=== PATIENT | male | born 1975 | race Caucasian/White ===

== ENCOUNTER 2021-01-08 13:28 | Outpatient (CLI) | payer OTHER, SELFPAY ==
--- NOTE | 2021-01-13 12:36 | WPDHOLTEREM ---
Holter/Event Monitor Holter/Event Monitor Date of procedure: 01/08/21 Procedure Type: 24 hour holter monitor Indications: Bradycardia Conclusion: 1. 24 hour holter monitor on 01/08/21. 2. Underlying rhythm is sinus rhythm. HR range 41-125 bpm; average HR 61 bpm. 3. There are 8 premature supraventricular complexes. No supraventricular tachycardia. 4. There are 7 premature ventricular complexes. No ventricular tachycardia. 5. No sinoatrial or atrioventricular blocks. No significant pauses greater than 2 seconds. 6. No symptoms available for correlation.
== END 2021-01-08 13:29 | disposition home or self-care (01) ==
PROVIDERS: PCP Family Medicine; Visit Provider Family Medicine
DX: R00.1 Bradycardia, unspecified (principal)
CPT/HCPCS: 93225; 93226

== ENCOUNTER 2021-01-23 08:40 | Outpatient (CLI) | payer OTHER, SELFPAY ==
[2021-01-23 09:22] LABS: Anion Gap 1 mmol/L (8-16); Blood Urea Nitrogen 14 mg/dL (9-20); Calcium 8.5 mg/dL (8.4-10.2); Carbon Dioxide 32 mmol/L (22-30); Chloride 108 mmol/L (98-107); Estimated Glomerular Filt Rate > 60; Glucose 91 mg/dL (75-110); Potassium 4.5 mmol/L (3.4-5.0); Sodium 141 mmol/L (137-145)
== END 2021-01-23 08:41 | disposition home or self-care (01) ==
PROVIDERS: PCP Family Medicine; Visit Provider Nurse Practitioner Family
DX: E83.51 Hypocalcemia (principal)
CPT/HCPCS: 36415; 80048

== ENCOUNTER 2021-02-26 14:34 | Outpatient (CLI) | payer OTHER, SELFPAY ==
--- NOTE | 2021-02-26 14:35 | ECHO_ITS ---
Patient Info Name: Krish Shelley Age: 46 years : 1975 Gender: Male Ht: 63 in Wt: 195 lbs BSA: 2.02 m2 HR: 57 bpm BP: 121 / 75 mmHg Technical Quality: Good Exam Date: 02/26/2021 3:07 PM Exam Location: [facility] Patient Status: Outpatient Admit Date: 02/26/2021 Staff Ordering Physician: Moris Baltazar DO Healthcare Account Manager: Caprice Meyer RDCS Attending Provider: Moris Baltazar DO Referring Physician: Giovanny LAI; Exam Type: CA echo doppler color flow Study Info Indications - DIZZINESS GIDDINESS Complete two-dimensional, color flow and Doppler transthoracic echocardiogram is performed. Summary 1. Complete two-dimensional, color flow and Doppler transthoracic echocardiogram is performed. 2. Left ventricular systolic function is normal, estimated at 60-65%. 3. The left ventricular diastolic function is normal. 4. Left ventricular chamber dimension is normal. 5. E/e' 8 is minimally elevated. 6. No pulmonary hypertension, estimated pulmonary arterial systolic pressure is 24 mmHg. Left Ventricle E/e' 8 is minimally elevated. Left ventricular chamber dimension is normal. Left ventricular systolic function is normal, estimated at 60-65%. The left ventricular diastolic function is normal. Right Ventricle Right ventricular chamber dimension is normal. Right ventricular systolic function is normal. Left Atria Left atrial chamber dimension is normal. Right Atria Right atrial chamber dimension is normal. Aortic Valve The aortic valve is trileaflet. There is no aortic valve stenosis. There is no aortic valve regurgitation. Pulmonic Valve There is no pulmonic regurgitation. Mitral Valve There is no mitral valve stenosis. There is no mitral valve regurgitation. Tricuspid Valve There is no tricuspid valve regurgitation. No pulmonary hypertension, estimated pulmonary arterial systolic pressure is 24 mmHg. Pericardium/Pleural There is no pericardial effusion. Inferior Vena Cava Normal inferior vena cava with >50% collapse upon inspiration consistent with normal right atrial pressure, 5 mmHg. Aorta The aortic root size at the sinus of Valsalva is normal. Left Ventricular Outflow Tract Name Value Normal LVOT 2D LVOT Diameter 2.0 cm LVOT Doppler LVOT Peak Gradient 4 mmHg LVOT Mean Gradient 3 mmHg LVOT VTI 27 cm LVOT VTI/AV VTI Ratio 0.8 LVOT Stroke Volume 85 ml LVOT CO 15.1 l/min LVOT CI 7.5 l/min/m2 Pulmonic Valve Name Value Normal PV Doppler PV Peak Gradient 6 mmHg Mitral Valve Name
== END 2021-02-26 14:35 | disposition home or self-care (01) ==
PROVIDERS: PCP Family Medicine; Visit Provider Internal Medicine Cardiovascular Disease
DX: R42 Dizziness and giddiness (principal); R00.1 Bradycardia, unspecified; R06.02 Shortness of breath
CPT/HCPCS: 93306

== ENCOUNTER → 2021-07-03 01:48 | Outpatient (CLI) | payer OTHER, SELFPAY ==
[2021-07-03 20:12] LABS: SARS-CoV-2 RNA PCR Negative
== END ==
PROVIDERS: PCP Family Medicine; Visit Provider Physician Assistant Medical
DX: R68.89 Other general symptoms and signs (principal); Z20.822 Contact with and (suspected) exposure to COVID-19
CPT/HCPCS: C9803; U0003; U0005

== ENCOUNTER → 2022-01-25 14:22 | Outpatient (CLI) | payer OTHER, SELFPAY ==
--- NOTE | ~2022-01-25 | MR_ITS ---
EXAMINATION: MR brain/brain stem wo con DATE: 01/25/2022 15:29 INDICATION: Disorientation, unspecified. Cognitive decline. TECHNIQUE: Magnetic resonance imaging (MRI) of the brain and brainstem was performed without intraven ous contrast. Sequences included sagittal and axial T1-weighted FSE, axial diffusion-weighted FS EPI, axial T2*-weighted GRE, axial T2-weighted FLAIR Propeller, and axial T2-weighted Propeller. Apparent diffusion coefficient (ADC) maps were created. COMPARISON: None. FINDINGS: There is no intracranial hemorrhage, acute infarction, or abnormal intracranial mass lesion . The ventricles are normal in size. There is mucosal thickening in the left maxillary and left ethmo id sinuses. The orbits are normal. The mastoid air cells are normal. IMPRESSION: 1. Normal brain. Reviewed, dictated and finalized at location A. IMPRESSION: 1. Normal brain.
== END ==
PROVIDERS: PCP Family Medicine; Visit Provider Family Medicine
DX: R41.0 Disorientation, unspecified (principal)
CPT/HCPCS: 70551

== ENCOUNTER 2023-12-15 09:26 | Outpatient (CLI) | payer OTHER, SELFPAY ==
--- NOTE | 2024-01-09 12:15 | WPDHOMESLEEP ---
Sleep Study - Home Unattended Date of Study: 12/15/23 Ordering Provider: Dinesh Gibson MD Interpreting Provider: Danuta Hammer MD Home Sleep Study Type: Watch PAT Height: 1.57 m Weight: 92.533 kg Body Mass Index: 37.3 Neck Circumference (inches): 16 Alva: 12 Reason for Sleep Study Hypersomnolence, memory loss Sleep History Krish Shelley is a 49-year-old man with daytime fatigue and excessive daytime sleepiness. His sleep questionnaire was filled out by his [id number]. He lives with his brother and [id number]-tuh. The patient has Down syndrome, depression and seasonal allergies. He occasionally awakens from sleep feeling short of breath but never awakens at night with heartburn, belching or coughing. He does not snore and others to not telling that he snores loudly. He Never has difficulty sleeping when he has a cold. Does not wake up gasping for breath at night. Others to not telling that he stops breathing at night. He does not sweat excessively at night or notice his heart pounding or beating irregularly at night. He frequently falls asleep during the day but never involuntarily. He does not drive. He does not have loss of muscle tone with strong emotion. He does not have daytime difficulties due to excessive sleepiness. He does not feel paralyzed on waking or falling asleep. He does not have vivid dreamlike scenes upon awakening or falling asleep. He does not feel afraid to go to sleep. He never has nightmares. He never recalls his dreams. He never has thoughts racing through his mind. He occasionally feels sad or depressed. He never feels anxiety. He never notices parts of his body jerk. He never kicks during the night. He never feels crawling or aching feelings in his legs. He never feels leg pain at night. He ever has morning jaw pain, never grinds his teeth at night. He never feels bothered by pain during the day, never awakened by pain during the night. He never wakes up feeling stiff in the morning, and he never wakes feeling sore or achy. He never awakens with pain in his neck, spine, or joints. Normal bedtime is 9:00 p.m., not waking during the night, waking up in the morning between 6:00 a.m. and 7:00 a.m.. On weekends, bedtime is between 10:00 p.m. and 12 midnight, wake time is still between 6:00 a.m. and 7:00 a.m.. He estimates getting 8 hours of sleep at night. He takes naps in the day, However he does not feel refreshed after a short nap lasting 10-15 minutes. Most of the time he feels adequate on waking. He feels better in the morning compared to other times of day. Habits:??Tobacco:none Caffeine: 3 cups Alcohol:none Recreational substances: none [facility] Past Medical History Medical History Allergic rhinitis Apnea Asthma BMI 31.0-31.9,adult BMI 32.0-32.9,adult BMI 37.0-37.9, adult Body mass index [BMI] 35.0-35.9, adult (03/17/18) Body mass index [BMI] 38.0-38.9, adult (09/05/19) Bradycardia Cerumen impaction Confusion COVID-19 Down syndrome Morbid obesity Somnolence Unspecified asthma, uncomplicated Surgical History Surgical History H/O Achilles tendon repair H/O eye surgery Family History Family History Father Mother Alzheimers disease Cerebrovascular accident Sibling No problems noted. Social History Social History Smoking status: Never smoker Second hand tobacco smoke exposure: Yes Alcohol intake: current Substance use: never Substance use type: does not use Do You Feel Safe in your Home?: Yes Lack of Transportation: No Lack of Food: Never True Current Housing: I Have Housing Concerned About Future Housing: No Difficulty Paying Gas/Electric Bills: No Difficulty Paying for Meds: No C
[2024-01-09 13:25] VITALS: BMI 37.3
== END 2023-12-16 15:08 | disposition home or self-care (01) ==
LOC: ANHCSM 09:26
PROVIDERS: PCP Family Medicine; Visit Provider Family Medicine
DX: G47.10 Hypersomnia, unspecified (principal); R40.0 Somnolence
CPT/HCPCS: 99199

== ENCOUNTER 2024-11-09 10:31 | Emergency (ER) | payer OTHER, SELFPAY ==
--- NOTE | 2024-11-09 11:29 | ED.SKABFB ---
HPI - Skin/Abscess/Foreign Bdy General Chief complaint: Skin/Abscess/Foreign Body Stated complaint: rash lt leg Time Seen by Provider: 11/09/24 12:16 Source: patient, RN notes reviewed and old records reviewed Mode of arrival: ambulatory Limitations: no limitations History of Present Illness HPI narrative: 49-year-old male with a history of Down syndromes presents to the [facility] with a rash to the left leg. Areas posterior leg is dry and flaky. Family did apply a moisturizing lotion which has helped. Patient denies any pain, itching. Area is red without inflammation, swelling, fluctuance. No open wounds. No vesicular areas. Does have a good pedal pulse. Capillary refill under 2 seconds with full range of motion of the ankle. Related Data Allergies Allergy/AdvReac Type Severity Reaction Status Date / Time No Known Allergies Allergy Verified 11/09/24 12:23 Review of Systems Review of Systems: All systems reviewed & are unremarkable except as noted in HPI and below Constitutional: Constitutional: Reports no additional constitutional complaints ENT: Reports system reviewed and no additional complaints, except as documented Cardiovascular: Cardiovascular: Reports no additional cardiovascular complaints, Denies chest pain and Denies dyspnea Respiratory: Respiratory: Reports no additional respiratory complaints, Denies chest congestion, Denies cough and Denies dyspnea Musculoskeletal: Musculoskeletal: Reports no additional musculoskeletal complaints Integumentary/Breasts: Skin/Breast: Reports as per HPI [facility] Past Medical History Medical History Dementia Apnea BMI 37.0-37.9, adult BMI 31.0-31.9,adult COVID-19 Body mass index [BMI] 35.0-35.9, adult (03/17/18) Body mass index [BMI] 38.0-38.9, adult (09/05/19) Unspecified asthma, uncomplicated Somnolence Confusion BMI 32.0-32.9,adult Cerumen impaction Bradycardia Allergic rhinitis Asthma Down syndrome Morbid obesity Surgical History Surgical History H/O eye surgery H/O Achilles tendon repair Family History Family History Father Mother Alzheimers disease Cerebrovascular accident Sibling No problems noted. Social History Social History Smoking status: Never smoker Second hand tobacco smoke exposure: Yes Alcohol intake: current Substance use: never Substance use type: does not use Do You Feel Safe in your Home?: Yes Lack of Transportation: No Lack of Food: Never True Current Housing: I Have Housing Concerned About Future Housing: No Difficulty Paying Gas/Electric Bills: No Difficulty Paying for Meds: No Currently Unemployed: No Education: High School Diploma/GED Difficulty w/ Childcare or Family Care: No Living arrangements: with family Occupation/Education: unemployed Gender identity (if verbalized by the patient): Male Comments At the time of my signature, I reviewed and agree with the nursing past medical, surgical, social, and family history. There is no relevant family history pertinent to the patient complaint. Exam Const: General: cooperative, healthy appearing, comfortable, no acute distress, well developed, alert and well nourished Nutritional Appearance: well nourished Orientation/consciousness: patient oriented x3 Limitations: no limitations HENMT: Head: normal to inspection Face and sinus: normal facial exam and face symmetric Eyes: General: appearance normal, both eyes and all related structures Neck: Neck: normal visual inspection, full ROM, no lymphadenopathy and no meningeal signs Chest: Chest palpation & inspection: normal inspection of the chest Resp: Effort & Inspection: normal respiratory effort and able to speak in complete sentences Cardio: Rate: regular rate Skin: General skin exam: normal color and no rashes or lesions noted Rashes: rashes noted (Left lower leg) Neuro: General: patient oriented x3, gait normal, moves all extremities and no meningeal signs Cognition (Neuro): normal cognition Speech: normal speech Gait exam (Neuro): Normal gait present Extrem: General: normal to inspection, full ROM, capillary refill normal and normal gait Psych: Appearance: grossly normal and well kempt Mental Status: mental status grossly normal Speech and movement: Normal speech and movement present and Clear speech present Affect: normal affect Attitude: cooperative Course Course Level of Care: Express Care Visit Vital Signs Vital signs: Vital Signs Temperature 97.1 F L 11/09/24 11:31 Pulse Rate 65 11/09/24 11:31 Respiratory Rate 16 11/09/24 11:31 Blood Pressure 97/54 L 11/09/24 11:31 Pulse Oximetry 99 11/09/24 11:31 Oxygen Delivery Room Air 11/09/24 11:31 Temperature 97.1 F L 11/09/24 11:31 Pulse Rate 65 11/09/24 11:31 Respiratory Rate 16 11/09/24 11:31 Blood Pressure 97/54 L 11/09/24 11:31 Pulse Oximetry 99 11/09/24 11:31 Oxygen Delivery Room Air 11/09/24 11:31 Reviewed MDM - Skin/Abscess/Foreign Bdy MDM Narrative Medical decision making narrative: Patient sitting comfortably in exam room. Nontoxic, vitals stable. Patient presents with a family member with a rash to just the left lower leg. Redness with no swelling, no fluctuance, no increased warmth. Denies any trauma. Concerns for cellulitis versus fungal infection. Will treat with oral antibiotic as well as topical fungal cream. Stressed the importance of following up with primary care provider Also discussed in great detail signs and symptoms go the emergency room which family member verbalized understanding. Discharge instructions reviewed with patient, as well as provided in writing per nursing staff. The instructions also include specific and strict return/GO TO THE ER as well as f/u information. All questions have been answered, and the patient deny any further questions with discharge and discharge plan. Some parts of this dictation were generated by voice recognition software and may contain typographical and/or grammatical inaccuracies. Differential Diagnosis Differential diagnosis: Likely abscess of skin or subcutaneous tissue, viral exanthem, dermatophytosis, cellulitis, eczema, contact dermatitis and other (Yeast infection) Critical Care Time Critical Care Time Critical Care Time: No Discharge Plan Discharge Clinical Impression: Dermatitis Patient Disposition: Home, Self-Care Condition: Stable Instructions: Antibiotic Form, Skin Yeast Infection (ED), Dermatitis (ED) Additional Instructions: Mixed together the triamcinolone and clotrimazole creams, apply twice daily. Use very small amount. Take antibiotic as prescribed Follow-up with primary care provider For new or worsening symptoms go directly to the emergency room Patient Language: Mongolian Prescriptions: New clotrimazole 1 % cream 1 applic topical BID Qty: 45 0RF triamcinolone acetonide 0.1 % cream 1 applic topical BID Qty: 30 0RF cephalexin 500 mg capsule 500 mg PO Q8H 7 Days Qty: 21 0RF No Action escitalopram oxalate [Lexapro] 10 mg tablet See Rx Instructions PO .COMPLEX Qty: 90 4RF Rx Instructions: take 1 tablet daily loratadine 10 mg tablet 10 mg PO DAILY Qty: 30 11RF Follow-up/Referrals: Dinesh Gibson MD [Primary Care Provider] - 3 Days ([facility] follow-up, left leg rash) Time of Disposition: 12:27
[2024-11-09 11:31] VITALS: BP 97/54; PULSE 65; RESP 16; TEMP 36.2; O2SAT 99
== END 2024-11-09 12:31 | disposition home or self-care (01) ==
PROVIDERS: Emergency Provider Nurse Practitioner; PCP Family Medicine
DX: L30.9 Dermatitis, unspecified (principal); F03.90 Unspecified dementia, unspecified severity, without behavioral disturbance, psychotic disturbance, mood disturbance, and anxiety
CPT/HCPCS: 99213; G0463

== ENCOUNTER 2024-11-11 12:18 | Emergency (ER) | payer OTHER, SELFPAY ==
--- NOTE | ~2024-11-11 | US_ITS ---
EXAMINATION: US venous doppler [facility] DATE: 11/11/2024 15:08 INDICATION: Left lower extremity pain and swelling TECHNIQUE: Grayscale ultrasound images without and with compression and Doppler ultrasound images of the left lower extremity veins were obtained. COMPARISON: None. FINDINGS: The visualized portions of left common femoral vein, profunda (deep) femoral vein, femoral vein, popl iteal vein, peroneal veins, posterior tibial veins, and greater saphenous vein outflow are patent. IMPRESSION: 1. No deep venous thrombosis within the left lower extremity. Reviewed, dictated and finalized at location A. TRICAL PROSPECTING OBSERVER
--- NOTE | ~2024-11-11 | XR_ITS ---
CHEST RADIOGRAPH CLINICAL HISTORY: rule out PNA . COMPARISON: 08/07/2014 TECHNIQUE: Single portable view of the chest. FINDINGS The cardiomediastinal silhouette is unremarkable. The lungs are clear. Visualized osseous structures and soft tissues are unremarkable. IMPRESSION: No focal infiltrate or effusion. Reviewed, dictated and finalized at location A. INSPECTOR
[2024-11-11 12:28] VITALS: BP 115/47; PULSE 56; RESP 16; TEMP 36.3; O2SAT 98
--- NOTE | 2024-11-11 14:24 | ED.LOWEXIN ---
HPI - Extremity Injury (Lower) General Chief Complaint: Extremity Injury, Lower Stated Complaint: L. leg swollen and red Time Seen by Provider: 11/11/24 14:02 Source: patient Mode of arrival: ambulatory Limitations: no limitations History of Present Illness HPI Narrative: This is a 49-year-old male with PMH of the down syndrome, bradycardia who presents to the ED with his sister and for chief complaint of left lower extremity redness and swelling times 3-4 days. Sister states that she 1st noticed this on Tuesday without rash this started around the ankle. She thought it may have been cellulitis so they went to urgent care. He has been taking oral antibiotics and topical steroid creams for this rash with no relief. She states the rash is spread up closer to the knee. Patient states that he is not having any pain with this. Sister states that he has been feeling unwell recently and fatigue. Denies any further site of rash. Denies any known new exposures or new medications. Denies neck pain, headache, fevers, nausea, vomiting. 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 Related Data Allergies Allergy/AdvReac Type Severity Reaction Status Date / Time No Known Allergies Allergy Verified 11/11/24 13:34 Review of Systems Review of Systems: All systems as dictated in [facility] Past Medical History Medical History Dementia Apnea BMI 37.0-37.9, adult BMI 31.0-31.9,adult COVID-19 Body mass index [BMI] 35.0-35.9, adult (03/17/18) Body mass index [BMI] 38.0-38.9, adult (09/05/19) Unspecified asthma, uncomplicated Somnolence Confusion BMI 32.0-32.9,adult Cerumen impaction Bradycardia Allergic rhinitis Asthma Down syndrome Morbid obesity Surgical History Surgical History H/O eye surgery H/O Achilles tendon repair Family History Family History Father Mother Alzheimers disease Cerebrovascular accident Sibling No problems noted. Social History Social History Smoking status: Never smoker Second hand tobacco smoke exposure: Yes Alcohol intake: current Substance use: never Substance use type: does not use Do You Feel Safe in your Home?: Yes Lack of Transportation: No Lack of Food: Never True Current Housing: I Have Housing Concerned About Future Housing: No Difficulty Paying Gas/Electric Bills: No Difficulty Paying for Meds: No Currently Unemployed: No Education: High School Diploma/GED Difficulty w/ Childcare or Family Care: No Living arrangements: with family Occupation/Education: unemployed Gender identity (if verbalized by the patient): Male Exam Narrative: GENERAL: Well-appearing, well-nourished, and in no acute distress. HEAD: Normocephalic, atraumatic. EYES: PERRLA and EOMI. ENT: Nares clear, no rhinorrhea or epistaxis. Mucous membranes moist. Oropharynx without tonsillar hypertrophy exudate or other lesions. NECK: Supple. No adenopathy or masses. CHEST: No respiratory distress. Clear to auscultation. No wheezes rales or rhonchi HEART: Regular rate and rhythm. No murmur heard. Normal peripheral pulses. ABDOMEN: Soft, nontender, nondistended, normal active bowel sounds. MSK: Normal range of motion. No edema. 2+ PT and DP pulses bilaterally SKIN: Well-circumscribed nonblanching petechial rash to the left lower extremity from left ankle extending up throughout this coronel and calf. Minimal warmth. No tenderness. The leg is swollen but not edematous. NEURO: Alert and oriented x4. No focal deficits. PSYCH: Normal mood and affect. Course Vital Signs Vital signs: Vital Signs Temperature 97.3 F L 11/11/24 12:28 Pulse Rate 56 L 11/11/24 12:28 Respiratory Rate 16 11/11/24 12:28 Blood Pressure 115/47 L 11/11/24 12:28 Pulse Oximetry 98 11/11/24 12:28 Temperature 97.3 F L 11/11/24 12:28 Pulse Rate 56 L 11/11/24 12:28 Respiratory Rate 16 11/11/24 12:28 Blood Pressure 115/47 L 11/11/24 12:28 Pulse Oximetry 98 11/11/24 12:28 MDM - Extremity Injury (Lower) MDM Narrative Medical decision making narrative: This is a 49-year-old male who presents to the ED for left leg rash. Vitals are normal. Exam shows left lower leg petechial rash that is nonblanching. No systemic signs or symptoms otherwise. Lab work is overall unremarkable. CBC shows normal hemoglobin, white count and normal platelets. Coagulation panel is normal as well. CMP unremarkable. CRP elevated at 8.1. Urinalysis shows 3-5 rbc's but otherwise is negative. Viral swabs negative. Venous Doppler study is negative for DVT. Chest x-ray negative as well. Presentation consistent with rash of uncertain etiology. May be a vasculitis, may be part of a viral syndrome with recent viral symptoms. Rx for Medrol Dosepak given. He has PCP appointment tomorrow. Patient will be discharged in stable condition. Supportive measures discussed and return precautions given. Patient is understanding and agreeable with plan for discharge with PCP follow-up. Lab Data 11/11/24 15:52 11/11/24 15:52 Labs: Lab Results 11/11/24 11/11/24 Range/Units 15:52 16:57 WBC 7.2 (4.5-10.0) K/mm3 RBC 4.11 L (4.6-6.20) M/mm3 Hgb 13.3 L (14.0-18.0) g/dL Hct 39.8 L (42.0-52.0) % MCV 96.8 (80-100) fl MCH 32.4 (26-34) pg MCHC 33.4 (32-36) g/dl RDW 15.2 H (11.5-14.5) % Plt Count 221 (150-375) k/mm3 MPV 10.1 (7.4-10.4) fl Immature Gran % (Auto) 0.6 H (0-0.5) % Neut % (Auto) 68.2 (45.5-73.1) % Lymph % (Auto) 19.1 (18.3-44.2) % Millard % (Auto) 10.7 H (2.6-8.5) % Eos % (Auto) 0.8 (0-4.4) % Baso % (Auto) 0.6 (0.2-1.2) % Lymph # (Auto) 1.38 (0.9-3.2) K/mm3 Millard # (Auto) 0.8 H (0.1-0.6) K/mm3 Eos # (Auto) 0.1 (0-0.3) K/mm3 Baso # (Auto) 0.0 (0.0-0.1) K/mm3 Abs Immat Gran (auto) 0.04 H (0.00-0.031) K/mm3 Absolute Neuts (auto) 4.9 (1.3-6.7) K/mm3 Absolute Nucleated RBC 0.000 (0.0-0.012) K/mm3 Nucleated RBC % 0.0 (0.0-0.2) % PT 14.1 (11.1-14.7) Seconds INR 1.1 APTT 28.9 (22.3-36.8) Seconds Sodium 138 (137-145) mmol/L Potassium 3.9 (3.4-5.0) mmol/L Chloride 106 (98-107) mmol/L Carbon Dioxide 31 H (22-30) mmol/L Anion Gap 1 L (4-12) mmol/L BUN 13 (9-20) mg/dL Creatinine 1.00 (0.7-1.3) mg/dL Estim Creat Clear Calc Not Reportable Estimated GFR > 60 (59 - ) Glucose 91 (65-110) mg/dL Calcium 8.5 (8.4-10.2) mg/dL Total Bilirubin 0.5 (0.2-1.3) mg/dL AST 25 (17-59) U/L ALT 15 (6-50) U/L Alkaline Phosphatase 66 (38-126) U/L C-Reactive Protein 8.1 H (<1.0) mg/dL Total Protein 8.0 (6.3-8.2) g/dL Albumin 3.7 (3.5-5.1) g/dL Urine Color Yellow (Yellow) Urine Appearance Clear (Clear) Urine pH 6.0 (5.0-9.0) Ur Specific [place] 1.016 (1.001-1.035) Urine Protein Trace (Negative) mg/dL Urine Glucose (UA) Negative (Negative) mg/dL Urine Ketones Trace H (Negative) mg/dL Ur Blood (Man) Non-hemolyzed trace (Negative) Urine Nitrate Negative (Negative) Urine Bilirubin Negative (Negative) Urine Urobilinogen 0.2 (<2.0) mg/dL Leukocyte Esterase Rfl Negative (Negative) YUNIER/UL Urine RBC 3-5 H (0-2) /hpf Urine WBC 0-5 (0-3) /hpf Ur Squamous Epith Cells None seen (Few) /hpf Urine Bacteria None seen /hpf Urine Casts 0-2 Influenza A (RT-PCR) Negative (Negative) Influenza B (RT-PCR) Negative (Negative) RSV (RT-PCR) Negative (Negative) SARS-CoV-2 RNA (RT-PCR) Negative (Negative) Discharge Plan Discharge Clinical Impression: Petechial rash Patient Disposition: Home, Self-Care Condition: Stable Instructions: Antibiotic Form Additional Instructions: Exam and workup today are overall reassuring. Please discontinue previously prescribed antibiotics and trial oral steroids. Follow-up with PCP on this issue. If you have any new or worsening symptoms please return to the ER for further evaluation. Patient Language: Uzbek Prescriptions: New methylprednisolone [Medrol (Froilan)] 4 mg tablets,dose pack See Rx Instructions .ROUTE .COMPLEX Qty: 21 0RF Rx Instructions: for 6 days No Action clotrimazole 1 % cream 1 applic topical BID Qty: 45 0RF triamcinolone acetonide 0.1 % cream 1 applic topical BID Qty: 30 0RF cephalexin 500 mg capsule 500 mg PO Q8H 7 Days Qty: 21 0RF escitalopram oxalate [Lexapro] 10 mg tablet See Rx Instructions PO .COMPLEX Qty: 90 4RF Rx Instructions: take 1 tablet daily loratadine 10 mg tablet 10 mg PO DAILY Qty: 30 11RF Follow-up/Referrals: Dinesh Gibson MD [Primary Care Provider] - Time of Disposition: 17:11
[2024-11-11 16:08] LABS: Basophils Percent Auto 0.6 % (0.2-1.2); Eosinophils Absolute Auto 0.1 K/mm3 (0-0.3); Eosinophils Percent Auto 0.8 % (0-4.4); Hematocrit 39.8 % (42.0-52.0); Hemoglobin 13.3 g/dL (14.0-18.0); Immature Granulocyte Absolute 0.04 K/mm3 (0.00-0.031); Immature Granulocyte Percent A 0.6 % (0-0.5); Lymphocytes Absolute Auto 1.38 K/mm3 (0.9-3.2); Lymphocytes Percent Auto 19.1 % (18.3-44.2); Mean Corpuscular HGB Conc 33.4 g/dl (32-36); Mean Corpuscular Hemoglobin 32.4 pg (26-34); Mean Corpuscular Volume 96.8 fl (80-100); Mean Platelet Volume 10.1 fl (7.4-10.4); Monocytes Absolute Auto 0.8 K/mm3 (0.1-0.6); Monocytes Percent Auto 10.7 % (2.6-8.5); Neutrophils Absolute Auto 4.9 K/mm3 (1.3-6.7); Neutrophils Percent Auto 68.2 % (45.5-73.1); Platelet Count Result 221 k/mm3 (150-375); Red Blood Count 4.11 M/mm3 (4.6-6.20); Red Cell Distribution Width 15.2 % (11.5-14.5); White Blood Count 7.2 K/mm3 (4.5-10.0)
[2024-11-11 16:14] LABS: Alanine Aminotransferase 15 U/L (6-50); Albumin Level 3.7 g/dL (3.5-5.1); Alkaline Phosphatase 66 U/L (38-126); Anion Gap 1 mmol/L (4-12); Aspartate Amino Transferase 25 U/L (17-59); Bilirubin,Total 0.5 mg/dL (0.2-1.3); Blood Urea Nitrogen 13 mg/dL (9-20); Calcium 8.5 mg/dL (8.4-10.2); Carbon Dioxide 31 mmol/L (22-30); Chloride 106 mmol/L (98-107); Estimated Glomerular Filt Rate > 60; Glucose 91 mg/dL (65-110); INR 1.1; Potassium 3.9 mmol/L (3.4-5.0); Prothrombin Time 14.1 Seconds (11.1-14.7); Sodium 138 mmol/L (137-145)
[2024-11-11 16:15] LABS: Partial Thromboplastin Time 28.9 Seconds (22.3-36.8)
[2024-11-11 16:18] LABS: CRP 8.1 mg/dL (<1.0)
[2024-11-11 16:41] LABS: Influenza A QL RT-PCR Negative (Negative); Influenza B QL RT-PCR Negative (Negative); RSV RNA, RT-PCR Negative (Negative); SARS-CoV-2 RNA PCR Negative (Negative)
[2024-11-11 17:15] LABS: Add Urine Microscopic? YES; Appearance Urine Clear (Clear); Bacteria Urine None Seen /hpf; Bilirubin Urine Negative (Negative); Blood Urine Non-Hemolyzed Trace (Negative); Color Urine Yellow (Yellow); Glucose Urine UA Negative (Negative); Ketones Urine Trace mg/dL (Negative); Leukocyte Esterase Ur Negative LEU/UL (Negative); Nitrate Urine Negative (Negative); Non Pathogenic Casts 0-2; Protein Urine Trace mg/dL (Negative); Specific Grav Ur 1.016 (1.001-1.035); Squamous Epithelial Cell Urine None Seen /hpf (Few); Urobilinogen Urine 0.2 mg/dL (<2.0); WBC Urine 0-5 /hpf (0-3)
== END 2024-11-11 18:31 | disposition home or self-care (01) ==
PROVIDERS: Emergency Provider Physician Assistant; PCP Family Medicine
DX: R23.3 Spontaneous ecchymoses (principal); Q90.9 Down syndrome, unspecified; R00.1 Bradycardia, unspecified; F03.90 Unspecified dementia, unspecified severity, without behavioral disturbance, psychotic disturbance, mood disturbance, and anxiety; Z20.822 Contact with and (suspected) exposure to COVID-19
CPT/HCPCS: 36415; 71045; 80053; 81001; 85025; 85610; 85730; 86140; 87637; 93971; 99284

== ENCOUNTER 2025-07-10 15:26 | Outpatient (CLI) | payer OTHER, SELFPAY ==
--- NOTE | 2025-07-10 15:35 | ECHO_ITS ---
Patient Info Name: Krish Shelley Age: 50 years : 1975 Gender: Male Ht: 64 in Wt: 201 lbs BSA: 2.07 m2 HR: 62 bpm BP: 122 / 78 mmHg Heart Rhythm: Sinus Rhythm Technical Quality: Fair Exam Date: 07/10/2025 3:48 PM Patient Status: O Admit Date: 07/10/2025 Exam Type: CA echo doppler color flow Complete two-dimensional, color flow and Doppler transthoracic echocardiogram is performed. Program Control Analyst: Nancie Gold Attending Provider: Uma Mckeon Summary 1. Complete two-dimensional, color flow and Doppler transthoracic echocardiogram is performed. 2. Left ventricular chamber dimension is normal. 3. Left ventricular systolic function is normal, estimated at 65-70. 4. The left ventricular diastolic function is abnormal. 5. E/e' 11 is mildly elevated. 6. There is mild aortic valve sclerosis. 7. There is trace mitral valve regurgitation. 8. No pulmonary hypertension, estimated pulmonary arterial systolic pressure is 25 mmHg. Left Ventricle E/e' 11 is mildly elevated. Left ventricular chamber dimension is normal. Left ventricular systolic function is normal, estimated at 65-70. The left ventricular diastolic function is abnormal. Right Ventricle Right ventricular chamber dimension is normal. Right ventricular systolic function is normal. Left Atria Left atrial chamber dimension is normal. Right Atria Right atrial chamber dimension is normal. Aortic Valve The aortic valve is trileaflet. There is mild aortic valve sclerosis. There is no aortic valve stenosis. There is no aortic valve regurgitation. Pulmonic Valve There is no pulmonic regurgitation. Mitral Valve There is no mitral valve stenosis. There is trace mitral valve regurgitation. Tricuspid Valve There is no tricuspid valve regurgitation. No pulmonary hypertension, estimated pulmonary arterial systolic pressure is 25 mmHg. Pericardium/Pleural There is no pericardial effusion. Inferior Vena Cava Normal inferior vena cava with >50% collapse upon inspiration consistent with normal right atrial pressure, 5 mmHg. Aorta The aortic root size at the sinus of Valsalva is normal. Left Ventricular Outflow Tract Name Value Normal LVOT 2D LVOT Diameter 2.0 cm LVOT Doppler LVOT Peak Velocity 102 cm/s LVOT Peak Gradient 4 mmHg LVOT Mean Gradient 2 mmHg LVOT VTI 22 cm LVOT VTI/AV VTI Ratio 0.5 LVOT Stroke Volume 66 ml LVOT CO 3.9 l/min LVOT CI 1.9 l/min/m2 Pulmonic Valve Name Value Normal RVOT Doppler RVOT Peak Velocity 106 cm/s RVOT Peak Gradient 4 mmHg PV Doppler PV Peak Velocity 106 cm/s PV Peak Gradient 4 mmHg Mitral Valve Name Value Normal MV Diastolic Function MV E Peak Velocity 118 cm/s MV A Peak Velocity 73 cm/s MV E/A 1.6 MV Decel Time (PW) 151 ms MV Annular TDI MV E/e' (Septal) 13.2 MV E/e' (Lateral) 10.5 MV E/e' (Average) 11.9 Tricuspid Valve Name Value Normal TV Regurgitation Doppler TR Peak Velocity 222 cm/s TR Peak Gradient 20 mmHg Estimated PAP/RSVP RA Pressure 5 mmHg <=5 PA Systolic Pressure 25 mmHg <36 RV Systolic Pressure 25 mmHg <36 TV Annular TDI TV Lateral Toyin s' Velocity 13.6 cm/s >=9.5 Aorta Name Value Normal Ascending Aorta Ao Root Diameter (MM) 3.0 cm Ao Root Diam Index (MM) 1.5 cm/m2 Aortic Valve Name Value Normal AV Doppler AV Peak Velocity 196 cm/s AV Peak Gradient 15 mmHg AV Mean Gradient 7 mmHg AV VTI 41 cm AV Area (Cont Eq VTI) 1.6 cm2 >=3.0 AV Area (Cont Eq Dmitry) 1.6 cm2 AV DI (Dmitry) 0.52 AV Regurgitation 2D LVOT Area 3.1 cm2 Ventricles Name Value Normal LV Dimensions 2D/MM IVS Diastolic Thickness (2D) 0.7 cm 0.6-1.0 LVID Diastole (2D) 4.6 cm 4.2-5.8 LVIW Diastolic Thickness (2D) 0.7 cm 0.6-1.0 LVID Systole (2D) 2.6 cm 2.5-4.0 LVOT Diameter 2.0 cm LV Mass (2D Cubed) 101.93 g 88.00-224.00 LV Mass Index (2D Cubed) 49 g/m2 49-115 Relative Wall Thickness (2D) 0.31 <=0.42 LV Fractional Shortening/Ejection Fraction 2D/MM LV Fractional Shortening (2D) 43 % 25-43 LV EF (2D Teichholz) 75 % LV Diastolic Volume (4C MOD) 61 ml LV EF (4C MOD) 68 % LV Diastolic Volume (2C MOD) 55 ml LV EF (2C MOD) 73 % LV Diastolic Volume (BP MOD) 60 ml 62-150 LV Diastolic Volume Index (BP MOD) 29 ml/m2 34-74 LV Systolic Volume (BP MOD) 17 ml 21-61 LV Systolic Volume Index (BP MOD) 8 ml/m2 11-31 LV EF (BP MOD) 71 % 52-72 LV Diastolic Length (4C) 7.0 cm LV Systolic Length (4C) 5.0 cm LV Stroke Volume (4C MOD) 42 ml Atria Name Value Normal LA Dimensions LA Dimension (MM) 3.3 cm 3.0-4.0 LA Volume (4C A-L) 23 ml LA Volume (BP A-L) 34 ml RA Dimensions RA Area (4C) 11.6 cm2 <=18.0 Report Signatures
== END 2025-07-10 15:27 | disposition home or self-care (01) ==
LOC: ANHCARD 15:27
PROVIDERS: PCP Family Medicine; Visit Provider Nurse Practitioner Family
DX: R93.1 Abnormal findings on diagnostic imaging of heart and coronary circulation (principal); R06.81 Apnea, not elsewhere classified; R55 Syncope and collapse; R00.1 Bradycardia, unspecified; E66.9 Obesity, unspecified; E83.51 Hypocalcemia; R42 Dizziness and giddiness
CPT/HCPCS: 93306